=== PATIENT | female | born 1960 | race Caucasian/White ===

== ENCOUNTER 2023-06-28 12:13 | Emergency (ER) | payer SELFPAY ==
[~2023-06-28] VITALS: Ht 170.2 cm; Wt 60.3 kg
[2023-06-28 13:04] VITALS: BP_SYST 189; PULSE 63; RESP 16; TEMP 98.7; O2SAT 98
[2023-06-28] MEDS ORDERED: cloNIDine HCL 0.1 MG TABLET PO ONE (13:30)
[2023-06-28] MEDS ORDERED: LOSA-413 PO (14:41)
[2023-06-28 14:55] VITALS: BP_SYST 156; PULSE 65; RESP 18; TEMP 98.7; O2SAT 98
== END 2023-06-28 14:55 | disposition home or self-care (01) ==
LOC: SED 12:13
DX: I16.9 Hypertensive crisis, unspecified (principal); I10 Essential (primary) hypertension; F17.200 Nicotine dependence, unspecified, uncomplicated; Z79.899 Other long term (current) drug therapy
CPT/HCPCS: 99283